=== PATIENT | female | born 1955 | race American Indian/Alaskan Native ===

== ENCOUNTER 2016-05-27 18:37 | Emergency (ER) | payer OTHER ==
[2016-05-27 18:37] VITALS: BMI 35.2
[2016-05-27 19:10] VITALS: BP 146/89; PULSE 78; RESP 16; TEMP 99.7; O2SAT 97
--- NOTE | 2016-05-27 19:46 | ED PDOC ---
Arrival/HPI - General Chief Complaint: Lower Extremity Problem/Injury Time Seen by Provider: 05/27/16 19:19 Historian: Patient - History of Present Illness Narrative History of Present Illness (Text): 05/27/16 21:36 Patient w/ PMH of HTN, reports 2 week h/o atraumatic swelling with no pain to the LLE associated with an itchy rash to the L lower horvath/ankle x 1.5 weeks. Otherwise: (-) trauma, (-) chest pain, (-) dyspnea, (-) hemoptysis, (-) prior thromboembolic disease, (-) prolonged immobility or travel, (-) CHF, (-) known malignancy, (-) fever, (-) chills. Of note, patient states that she saw her pmd regarding her symptoms 2 weeks ago and was sent for an outpatient US to r/o DVT , states that her US was (-) for DVT. Past Medical History - Provider Review Nursing Documentation Reviewed: Yes - Infectious Disease Hx of Infectious Diseases: None - Reproductive Menopause: Yes - Cardiac Hx Cardiac Disorders: Yes Hx Hypertension: Yes - Pulmonary Hx Respiratory Disorders: No - Neurological Hx Neurological Disorder: No - HEENT Hx HEENT Disorder: No - Renal Hx Renal Disorder: No - Endocrine/Metabolic Hx Endocrine Disorders: No - Hematological/Oncological Hx Blood Disorders: No - Integumentary Hx Dermatological Disorder: No - Musculoskeletal/Rheumatological Hx Musculoskeletal Disorders: Yes Hx Arthritis: Yes - Gastrointestinal Hx Gastrointestinal Disorders: No - Genitourinary/Gynecological Hx Genitourinary Disorders: No - Psychiatric Hx Psychophysiologic Disorder: No Hx Substance Use: No (former cocaine use) - Surgical History Hx Cholecystectomy: Yes Hx Hysterectomy: Yes Hx Orthopedic Surgery: Yes (BACK SURGERY) - Anesthesia Hx Anesthesia: Yes Hx Anesthesia Reactions: No - Suicidal Assessment Feels Threatened In Home Enviroment: No Family/Social History - Physician Review Nursing Documentation Reviewed: Yes Family/Social History: No Known Family HX Smoking Status: Former Smoker Hx Alcohol Use: No (former) Hx Substance Use: No (former cocaine use) Allergies/Home Meds Allergies/Adverse Reactions: Allergies seasonal Allergy (Uncoded 05/27/16 19:11) CONGESTION Home Medications: Home Meds Medication Instructions Recorded Confirmed Nifedipine [Nifedipine ER] 30 mg PO DAILY 03/04/15 05/27/16 Aspirin [Ecotrin] 81 mg PO DAILY 04/05/15 05/27/16 Losartan Potassium 100 mg PO BID 04/05/15 05/27/16 Omeprazole 40 mg PO DAILY 04/05/15 05/27/16 Simvastatin 20 mg PO DAILY 04/05/15 05/27/16 Review of Systems - Review of Systems Constitutional: Normal. absent: Fatigue, Weight Change, Fevers Respiratory: Normal. absent: SOB, Cough, Sputum Cardiovascular: Normal. absent: Chest Pain, Palpitations, Edema Musculoskeletal: Normal. absent: Arthralgias, Back Pain, Neck Pain Skin: Normal, Rash (pruritic rash to L horvath/ankle x1.5 wks). absent: Skin Lesions Physical Exam - Physical Exam Narrative Physical Exam (Text): 05/27/16 21:34 GENERAL APPEARANCE: Patient is awake, alert, oriented x 3, in no acute distress. SKIN: Warm, dry; (-) cyanosis; (-) rash. HEAD: (-) scalp swelling, (-) tenderness. EYES: (-) conjunctival pallor, (-) scleral icterus. ENMT: Pharynx: (-) erythema; airway patent: (-) stridor; mucous membranes moist. NECK: (-) tenderness, (-) stiffness, (-) lymphadenopathy, (-) thyromegaly. CHEST AND RESPIRATORY: (-) rales, (-) rhonchi, (-) wheezes, (-) pleural friction rub; breath sounds equal bilaterally. HEART AND CARDIOVASCULAR: (-) irregularity; (-) murmur, (-) gallop, (-) pericardial rub. ABDOMEN AND GI: Soft; (-) tenderness, (-) guarding, (-) rebound, (-) palpable masses, (-) CVA tenderness. EXTREMITIES: (+) erythematous rash noted to the anterior medial L horvath/ankle, ( +) mild nonpitting edema of the LLE with (-) tenderness and (-) palpable cord. Opposite leg: normal. Distal pulses: 2+. NEURO AND PSYCH: Mental status as above. Cranial nerves grossly intact; strength symmetric. Vital Signs Temp Pulse Resp BP Pulse Ox 05/27/16 19:07 99.7 F H 78 16 146/89 97 Medical Decision Making ED Course and Treatment: 05/27/16 21:31 61 yo F presents with 2 week h/o atraumatic LLE edema associated with an itch rash to the anterior medial L horvath/ankle, consider contact dermatitis. Of note, patient already had an outpatient US 2 weeks ago which was (-) for DVT. Based on history and exam, plan will be for outpatient f/u. Will treat as a contact dermatitis but will Rx keflex. Patient states she fully agrees with and understands discharge instructions. States that she agrees with the plan and disposition. Verbalized and repeated discharge instructions and plan. I have given the patient opportunity to ask any additional questions. Follow up with primary care physician in 1-2 days without fail. Advised to take medication as prescribed. Return to the emergency room at any time for any new or worsening symptoms. - PA / COUNTERINTELLIGENCE/HUMINT SPECIALIST / Resident Statement MD/DO has reviewed & agrees with the documentation as recorded. Disposition/Present on Arrival - Present on Arrival Any Indicators Present on Arrival: No History of DVT/PE: No History of Uncontrolled Diabetes: No Urinary Catheter: No History of Decub. Ulcer: No History Surgical Site Infection Following: None - Disposition Have Diagnosis and Disposition been Completed?: Yes Diagnosis: Leg swelling, Contact dermatitis Disposition: HOME/ ROUTINE Disposition Time: 19:44 Patient Plan: Discharge Condition: GOOD Discharge Instructions (ExitCare): Leg Edema (ED), Contact Dermatitis (ED) Print Language: NEPALI Additional Instructions: Thank you for letting us take care of you today. You were treated for left lower leg swelling, contact dermatitis. The emergency medical care you received today was directed at your acute symptoms. If you were prescribed any medication , please fill it and take as directed. It may take several days for your symptoms to resolve. Return to the Emergency Department if your symptoms worsen , do not improve, or if you have any other problems. Please contact your doctor in 2 days for re-evaluation and follow up. Bring any paperwork you were given at discharge with you along with any medications you are taking to your follow up visit. Our treatment cannot replace ongoing medical care by a primary care provider (PCP) outside of the emergency department. Thank you for allowing the [facility] team to be part of your care today. Prescriptions: Cephalexin [Keflex] 500 mg PO Q6 #28 capsule Hydrocortisone Jessica 0.2% Cr [Westcort] 1 ea TP BID #30 tube Cetirizine HCl [Zyrtec] 10 mg PO DAILY #30 capsule Referrals: Indira Stein MD [Primary Care Provider] - Follow up with primary Forms: WORK NOTE
== END 2016-05-27 20:05 | disposition home or self-care (01) ==
LOC: ED 18:37
DX: M79.89 Other specified soft tissue disorders (principal); L25.9 Unspecified contact dermatitis, unspecified cause

== ENCOUNTER 2016-07-20 10:06 | Emergency (ER) | payer OTHER ==
[2016-07-20 10:19] VITALS: BMI 38.4
[2016-07-20 10:23] VITALS: RESP 18; TEMP 98.8
--- NOTE | 2016-07-20 11:22 | ED PDOC ---
Arrival/HPI - General Chief Complaint: Lower Extremity Problem/Injury Time Seen by Provider: 07/20/16 10:30 Historian: Patient - History of Present Illness Narrative History of Present Illness (Text): 07/20/16 10:30 A 61 year old female, whose past medical history includes hypertension, back surgery (L4-L5), total hysterectomy, and cholecystectomy, present to the emergency department complaining of worsening pain and swelling to the left lower extremities for the past month. Patient notes excruciating pain radiating up the left lower extremities. Patient mentions she has chronic back pain and sciatica. Patient states her PMD told here if she experiences pain to come to the emergency department for evaluation, so she decided to come in. Patient mentions she has a ultrasound in early 05/02 which was negative for DVT. Patient denies any right lower extremity swelling, control use, prolong immobilization, or any other complaints at this time. PMD: Dr. Bae Time/Duration: > month Symptom Onset: Gradual Quality: Other Activities at Onset: Rest Context: Home Past Medical History - Provider Review Nursing Documentation Reviewed: Yes - Infectious Disease Hx of Infectious Diseases: None - Reproductive Menopause: Yes - Cardiac Hx Cardiac Disorders: Yes Hx Hypertension: Yes - Pulmonary Hx Respiratory Disorders: No - Neurological Hx Neurological Disorder: No - HEENT Hx HEENT Disorder: No - Renal Hx Renal Disorder: No - Endocrine/Metabolic Hx Endocrine Disorders: No - Hematological/Oncological Hx Blood Disorders: No - Integumentary Hx Dermatological Disorder: No - Musculoskeletal/Rheumatological Hx Musculoskeletal Disorders: Yes Hx Arthritis: Yes - Gastrointestinal Hx Gastrointestinal Disorders: No - Genitourinary/Gynecological Hx Genitourinary Disorders: No - Psychiatric Hx Psychophysiologic Disorder: No Hx Substance Use: No (former cocaine use) - Surgical History Hx Cholecystectomy: Yes Hx Hysterectomy: Yes Hx Orthopedic Surgery: Yes (BACK SURGERY) - Anesthesia Hx Anesthesia: Yes Hx Anesthesia Reactions: No - Suicidal Assessment Feels Threatened In Home Enviroment: No Family/Social History - Physician Review Nursing Documentation Reviewed: Yes Family/Social History: Unknown Family HX Smoking Status: Former Smoker Hx Alcohol Use: No (former) Hx Substance Use: No (former cocaine use) Allergies/Home Meds Allergies/Adverse Reactions: Allergies seasonal Allergy (Uncoded 07/20/16 10:18) CONGESTION Home Medications: Home Meds Medication Instructions Recorded Confirmed Nifedipine [Nifedipine ER] 30 mg PO DAILY 03/04/15 07/20/16 Aspirin [Ecotrin] 81 mg PO DAILY 04/05/15 07/20/16 Losartan Potassium 100 mg PO BID 04/05/15 07/20/16 Omeprazole 40 mg PO DAILY 04/05/15 07/20/16 Simvastatin 20 mg PO DAILY 04/05/15 07/20/16 Review of Systems - Physician Review All systems were reviewed & negative as marked: Yes - Review of Systems Constitutional: absent: Fevers Respiratory: absent: SOB Cardiovascular: Edema (left lower extremity swelling and pain). absent: Chest Pain Gastrointestinal: absent: Abdominal Pain Physical Exam Vital Signs Reviewed: Yes Vital Signs Temp Pulse Resp BP Pulse Ox 07/20/16 12:21 75 18 135/80 98 07/20/16 10:22 98.8 F 78 18 137/88 96 Temperature: Afebrile Blood Pressure: Normal Pulse: Regular Respiratory Rate: Normal Appearance: Positive for: Well-Appearing, Non-Toxic, Comfortable Pain Distress: None Mental Status: Positive for: Alert and Oriented X 3 - Systems Exam Head: Present: Atraumatic, Normocephalic Pupils: Present: PERRL Extroacular Muscles: Present: EOMI Conjunctiva: Present: Normal Mouth: Present: Moist Mucous Membranes Neck: Present: Normal Range of Motion Respiratory/Chest: Present: Clear to Auscultation, Good Air Exchange. No: Respiratory Distress, Accessory Muscle Use Cardiovascular: Present: Regular Rate and Rhythm, Normal S1, S2. No: Murmurs Abdomen: Present: Normal Bowel Sounds. No: Tenderness, Distention, Peritoneal Signs Back: Present: Paraspinal Tenderness (left lower back pain) Upper Extremity: Present: Normal Inspection. No: Cyanosis, Edema Lower Extremity: Present: NORMAL PULSES, Swelling (left lower extremity swelling ), Neurovascularly Intact, Capillary Refill < 2 s. No: CALF TENDERNESS, Cyanosis, Enrique's Sign, Erythema, Deformity, Temperature Abnormalties Neurological: Present: GCS=15, CN II-XII Intact, Speech Normal Skin: Present: Warm, Dry, Normal Color. No: Rashes Psychiatric: Present: Alert, Oriented x 3, Normal Insight, Normal Concentration Medical Decision Making ED Course and Treatment: 07/20/16 10:30 Impression: A 61 year old female with worsening left lower extremity swelling. Differential Diagnosis include but are not limited to: DVT vs Sciatica/ Radiculopathy Plan: -- Left lower extremity duplex ultrasound -- Motrin -- Reassess and disposition Prior Visits: Notes and results from previous visits were reviewed. The patient last presented to the emergency department on 05/27/16 for evaluation os left lower extremity swelling. Progress Notes: 07/20/16 12:25 Patient's ultrasound is negative for a DVT. Patient pain resolved. Symptoms most likely radiculpathy. She will f/u with Dr. Stein. - RAD Interpretation Radiology Orders: 07/20/16 10:45 DUPLEX LOWER EXTRM VEIN LEFT [US] Stat - Medication Orders Current Medication Orders: Discontinued Medications Ibuprofen (Motrin Tab) 600 mg PO STAT STA Stop: 07/20/16 10:47 Last Admin: 07/20/16 11:03 Dose: 600 mg - Scribe Statement The provider has reviewed the documentation as recorded by the Glenroyibe Isha Hinojosa Provider Scribe Attestation: All medical record entries made by the Scribe were at my direction and personally dictated by me. I have reviewed the chart and agree that the record accurately reflects my personal performance of the history, physical exam, medical decision making, and the department course for this patient. I have also personally directed, reviewed, and agree with the discharge instructions and disposition. Disposition/Present on Arrival - Present on Arrival Any Indicators Present on Arrival: No History of DVT/PE: No History of Uncontrolled Diabetes: No Urinary Catheter: No History of Decub. Ulcer: No History Surgical Site Infection Following: None - Disposition Have Diagnosis and Disposition been Completed?: Yes Diagnosis: Leg swelling, Radicular pain Disposition: HOME/ ROUTINE Disposition Time: 12:26 Patient Plan: Discharge Condition: IMPROVED Discharge Instructions (ExitCare): Lumbar Radiculopathy (ED), Leg Edema (ED) Prescriptions: Ibuprofen [Motrin] 600 mg PO Q6 PRN #30 tab PRN Reason: Pain, Moderate (4-7) Referrals: Indira Stein MD [Primary Care Provider] - Follow up with primary Forms: [email or web address] (Yakut), WORK NOTE
[2016-07-20 12:24] VITALS: BP 135/80; PULSE 75; O2SAT 98
--- NOTE | 2016-07-20 15:16 | US ---
PROCEDURE: Left lower extremity venous US HISTORY: Leg pain and swelling. Evaluate for DVT. PHYSICIAN(S): Jacek Myers MD. TECHNIQUE: Duplex sonography and color-flow Doppler with graded compression were used to evaluate the deep venous system of the left lower extremity. FINDINGS: The visualized deep venous system of the left lower extremity is sonographically normal and compressible. Normal wave forms and augmentation are seen. There is no sonographic evidence for deep venous thrombosis in the visualized segments of the left lower extremity. IMPRESSION: 1. No sonographic evidence for deep venous thrombosis in the visualized segments of the left lower extremity.
== END 2016-07-20 12:24 | disposition home or self-care (01) ==
LOC: ED 10:06
DX: M54.16 Radiculopathy, lumbar region (principal); M79.89 Other specified soft tissue disorders; I10 Essential (primary) hypertension; Z87.891 Personal history of nicotine dependence

== ENCOUNTER 2017-02-25 14:21 | Emergency (ER) | payer OTHER ==
[2017-02-25 14:22] VITALS: BMI 38.4
[2017-02-25 15:15] VITALS: TEMP 98.9; O2SAT 97
--- NOTE | 2017-02-25 16:56 | RAD ---
PROCEDURE: Left Knee Radiographs. HISTORY: Pain. No history of recent/ related trauma provided COMPARISON: None. FINDINGS: BONES: Normal. No fracture. JOINTS: Normal. No osteoarthritis. JOINT EFFUSION: None. OTHER FINDINGS: None. IMPRESSION: No significant or acute findings to account for/ related to the clinical presentation.
--- NOTE | 2017-02-25 17:08 | US ---
HISTORY: knee pain/leg pain . PRIORS: None. FINDINGS: 2-D, color and duplex Doppler analysis of the lower extremity venous circulation using routine protocol from the femoral veins through the popliteal veins. Venous compressibility: Normal. Flow and augmentation patterns: Normal. Visualized veins upper third of calf: Normal. Stallings cyst: None. IMPRESSION: No sonographic or Doppler evidence for DVT in left lower extremity.
--- NOTE | 2017-02-25 18:04 | ED PDOC ---
Arrival/HPI - General Chief Complaint: Lower Extremity Problem/Injury Time Seen by Provider: 02/25/17 15:54 Historian: Patient - History of Present Illness Narrative History of Present Illness (Text): 02/25/17 18:03 61-year-old female presents today with a 3 month history of left knee pain. Patient states she's been having on and off left knee pain 3 months. Patient states the pain radiates up and down the thigh and over the lateral aspect of the knee. Patient denies numbness weakness or tingling in the family. Patient states she occasionally takes Motrin for pain. Patient states she had x-rays a few months ago which were normal. Patient states the pain is not improving. Patient states she has not followed up with orthopedist. Patient denies chest pain or shortness of breath. Quality: Aching Past Medical History - Provider Review Nursing Documentation Reviewed: Yes - Travel History Have you recently traveled outside [place] w/in the past 3 mons?: No - Infectious Disease Hx of Infectious Diseases: None - Reproductive Menopause: Yes - Cardiac Hx Cardiac Disorders: Yes Hx Hypertension: Yes - Pulmonary Hx Respiratory Disorders: No - Neurological Hx Neurological Disorder: No - HEENT Hx HEENT Disorder: No - Renal Hx Renal Disorder: No - Endocrine/Metabolic Hx Endocrine Disorders: No - Hematological/Oncological Hx Blood Disorders: No - Integumentary Hx Dermatological Disorder: No - Musculoskeletal/Rheumatological Hx Musculoskeletal Disorders: Yes Hx Arthritis: Yes - Gastrointestinal Hx Gastrointestinal Disorders: No - Genitourinary/Gynecological Hx Genitourinary Disorders: No - Psychiatric Hx Psychophysiologic Disorder: No Hx Substance Use: No (former cocaine use) - Surgical History Hx Cholecystectomy: Yes Hx Hysterectomy: Yes Hx Orthopedic Surgery: Yes (BACK SURGERY) - Anesthesia Hx Anesthesia: Yes - Suicidal Assessment Feels Threatened In Home Enviroment: No Family/Social History - Physician Review Nursing Documentation Reviewed: Yes Family/Social History: Unknown Family HX Smoking Status: Former Smoker Hx Alcohol Use: No (former) Hx Substance Use: No (former cocaine use) Allergies/Home Meds Allergies/Adverse Reactions: Allergies No Known Allergies Allergy (Verified 02/25/17 15:08) Home Medications: Home Meds Medication Instructions Recorded Confirmed Aspirin [Ecotrin] 81 mg PO DAILY 04/05/15 02/25/17 Losartan Potassium 100 mg PO BID 02/18/16 01/10/18 Omeprazole 40 mg PO DAILY 04/05/15 02/25/17 Simvastatin 20 mg PO DAILY 04/05/15 02/25/17 Review of Systems - Review of Systems Constitutional: absent: Fatigue, Fevers Respiratory: absent: SOB, Cough Cardiovascular: absent: Chest Pain, Palpitations Gastrointestinal: absent: Abdominal Pain, Nausea, Vomiting Genitourinary Female: absent: Dysuria Musculoskeletal: Arthralgias (left knee pain). absent: Back Pain, Neck Pain Skin: absent: Rash, Pruritis Neurological: absent: Headache, Dizziness Psychiatric: absent: Anxiety, Depression, Suicidal Ideation Physical Exam Vital Signs Reviewed: Yes Vital Signs Temp Pulse Resp BP Pulse Ox 02/25/17 18:17 75 18 168/74 H 97 02/25/17 15:13 98.9 F 80 16 172/97 H 97 Temperature: Afebrile Blood Pressure: Hypertensive Pulse: Regular Respiratory Rate: Normal Appearance: Positive for: Well-Appearing, Non-Toxic, Comfortable Pain Distress: None Mental Status: Positive for: Alert and Oriented X 3 - Systems Exam Head: Present: Atraumatic Mouth: Present: Moist Mucous Membranes Neck: Present: Normal Range of Motion Respiratory/Chest: Present: Clear to Auscultation, Good Air Exchange. No: Respiratory Distress, Accessory Muscle Use Cardiovascular: Present: Regular Rate and Rhythm, Normal S1, S2. No: Murmurs Abdomen: Present: Normal Bowel Sounds. No: Tenderness, Distention, Peritoneal Signs, Rebound, Guarding Back: Present: Normal Inspection. No: CVA Tenderness, Midline Tenderness, Paraspinal Tenderness Upper Extremity: Present: Normal ROM Lower Extremity: Present: NORMAL PULSES, Normal ROM, Tenderness (left knee; + ttp over anterior and lateral aspect of the knee. ), Neurovascularly Intact, Capillary Refill < 2 s. No: Edema, Swelling, Erythema, Deformity, Temperature Abnormalties Neurological: Present: GCS=15, Speech Normal Skin: Present: Warm, Dry, Normal Color. No: Rashes Psychiatric: Present: Alert, Oriented x 3 Medical Decision Making ED Course and Treatment: 02/25/17 18:50 Patient nontoxic well-appearing in no distress with stable vital signs X-rays of the knee:no fracture duplex; no dvt toradol IM Patient placed in knee immobilizer. cane given for ambulation I discussed all results with patient advised to followup with the orthopedist for the next 2 days. Return if symptoms worsen persist or new symptoms develop i advised the patient that although the xrays show no fracture; there is still a possibility for ligamentous or tendon injury the patient must see the orthopedist for further evaluation. Patient verbalizes understanding of discharge instructions and need for immediate followup. all aspects of this case were discussed the attending of record. Impression: knee pain Motrin every 6 hours as needed for pain Rest, ice, compression, elevation Use Cane for ambulation Followup with the orthopedist within the next 2 days Followup with primary care physician within the next 2 days Return if symptoms worsen persist or if new symptoms develop - RAD Interpretation Radiology Orders: 02/25/17 15:57 KNEE WITH PATELLA LEFT 3 VIEW [RAD] Stat 02/25/17 16:03 DUPLEX LOWER EXTRM VEIN LEFT [US] Stat - Medication Orders Current Medication Orders: Discontinued Medications Ketorolac Tromethamine (Toradol) 60 mg IM STAT STA Stop: 02/25/17 15:58 Last Admin: 02/25/17 17:52 Dose: 60 mg MAR Pain Assessment Document 02/25/17 17:52 [facility] (Rec: 02/25/17 17:52 [facility] [id number]) Pain Reassessment Is this a pain reassessment? No IM Administration Charges Document 02/25/17 17:52 [facility] (Rec: 02/25/17 17:52 [facility] [id number]) Injection Site MAR Injection Site Left Deltoid Charges for Administration # of IM Administrations 1 Disposition/Present on Arrival - Present on Arrival Any Indicators Present on Arrival: No History of DVT/PE: No History of Uncontrolled Diabetes: No Urinary Catheter: No History of Decub. Ulcer: No History Surgical Site Infection Following: None - Disposition Have Diagnosis and Disposition been Completed?: Yes Diagnosis: Knee pain, Leg pain Disposition: HOME/ ROUTINE Disposition Time: 18:17 Patient Plan: Discharge Condition: GOOD Discharge Instructions (ExitCare): Knee Pain (ED), Leg Pain (ED) Additional Instructions: Motrin every 6 hours as needed for pain tramadol; 1 tablet every 6 hours as needed for moderate to severe pain; may cause drowsiness. Rest, ice, compression, elevation Use cane for ambulation Followup with the orthopedist within the next 2 days Followup with primary care physician within the next 2 days Return if symptoms worsen persist or if new symptoms develop Prescriptions: Ibuprofen [Motrin] 600 mg PO Q6H PRN #20 tab PRN Reason: pain/fever reduction traMADol [Ultram] 50 mg PO Q6H PRN #10 tab PRN Reason: moderate to severe pain Referrals: Indira Stein MD [Primary Care Provider] - Follow up with primary Maureen Aguilar MD [Staff Provider] - Follow up with primary Forms: Zelgor (Arabic)
[2017-02-25 18:18] VITALS: BP 168/74; PULSE 75; RESP 18
== END 2017-02-25 18:39 | disposition home or self-care (01) ==
LOC: ED 14:21
DX: M25.562 Pain in left knee (principal); M79.605 Pain in left leg; I10 Essential (primary) hypertension; Z87.891 Personal history of nicotine dependence
CPT/HCPCS: 29530; 73562; 93971; 96372; 99284; J1885

== ENCOUNTER 2017-03-09 10:23 | Emergency (ER) | payer OTHER ==
[2017-03-09 10:25] VITALS: BMI 38.4
== END 2017-03-09 10:40 | disposition left against medical advice (07) ==
LOC: ED 10:23
DX: Z02.89 Encounter for other administrative examinations (principal); M25.562 Pain in left knee

== ENCOUNTER 2017-03-23 21:22 | Emergency (ER) | payer OTHER ==
[2017-03-23 21:22] VITALS: BMI 38.4
[2017-03-23 21:34] VITALS: RESP 18
--- NOTE | 2017-03-23 21:50 | ED PDOC ---
Arrival/HPI - General Chief Complaint: High Blood Pressure Time Seen by Provider: 03/23/17 21:27 Historian: Patient - History of Present Illness Narrative History of Present Illness (Text): 03/23/17 21:50 A 61 year old female was brought in by EMS to the emergency department for evaluation of high blood pressure. Patient saw PMD today, reports blood pressure of 190/120 in office. PMD was supposed to call a different strength of Losartan and water pill, which didn't happen. Patient took blood pressure at home to be 220/120 tonight. Patient called her friend and reports elevated blood pressure after using her friends blood pressure monitor. Patient denies any other complaints at this time. PMD: Dr. Stein Symptom Onset: Sudden Symptom Course: Unchanged Activities at Onset: Rest Context: Home Past Medical History - Provider Review Nursing Documentation Reviewed: Yes - Infectious Disease Hx of Infectious Diseases: None - Cardiac Hx Cardiac Disorders: Yes Hx Hypertension: Yes - Pulmonary Hx Respiratory Disorders: No - Neurological Hx Neurological Disorder: No - HEENT Hx HEENT Disorder: No - Renal Hx Renal Disorder: No - Endocrine/Metabolic Hx Endocrine Disorders: No - Hematological/Oncological Hx Blood Disorders: No - Integumentary Hx Dermatological Disorder: No - Musculoskeletal/Rheumatological Hx Musculoskeletal Disorders: Yes Hx Arthritis: Yes - Gastrointestinal Hx Gastrointestinal Disorders: No - Genitourinary/Gynecological Hx Genitourinary Disorders: No - Psychiatric Hx Psychophysiologic Disorder: No Hx Substance Use: No (former cocaine use) - Surgical History Hx Cholecystectomy: Yes Hx Hysterectomy: Yes Hx Orthopedic Surgery: Yes (BACK SURGERY) - Anesthesia Hx Anesthesia: Yes - Suicidal Assessment Feels Threatened In Home Enviroment: No Family/Social History - Physician Review Nursing Documentation Reviewed: Yes Family/Social History: No Known Family HX Smoking Status: Former Smoker Hx Alcohol Use: No (former) Hx Substance Use: No (former cocaine use) Allergies/Home Meds Allergies/Adverse Reactions: Allergies No Known Allergies Allergy (Verified 02/25/17 15:08) Home Medications: Home Meds Medication Instructions Recorded Confirmed Aspirin [Ecotrin] 81 mg PO DAILY 04/05/15 03/23/17 Losartan Potassium 100 mg PO BID 04/05/15 03/23/17 Omeprazole 40 mg PO DAILY 04/05/15 03/23/17 Simvastatin 20 mg PO DAILY 04/05/15 03/23/17 Review of Systems - Physician Review All systems were reviewed & negative as marked: Yes - Review of Systems Respiratory: absent: SOB Neurological: absent: Headache Physical Exam Vital Signs Reviewed: Yes Vital Signs Pulse Resp BP BP Pulse Ox 03/24/17 02:24 75 18 152/100 H 100 03/24/17 01:40 77 166/99 H 03/24/17 00:52 68 18 158/91 H 100 03/24/17 00:01 70 18 164/97 H 100 03/23/17 23:33 60 174/101 H 03/23/17 23:14 60 18 174/100 H 98 03/23/17 22:01 78 198/102 H 03/23/17 21:45 198/102 H 03/23/17 21:25 76 18 198/102 H 97 Temperature: Afebrile Blood Pressure: Hypertensive Pulse: Regular Respiratory Rate: Normal Appearance: Positive for: Well-Appearing, Non-Toxic, Comfortable Pain Distress: None Mental Status: Positive for: Alert and Oriented X 3 - Systems Exam Head: Present: Atraumatic, Normocephalic Pupils: Present: PERRL Extroacular Muscles: Present: EOMI Conjunctiva: Present: Normal Mouth: Present: Moist Mucous Membranes Neck: Present: Normal Range of Motion Respiratory/Chest: Present: Clear to Auscultation, Good Air Exchange. No: Respiratory Distress, Accessory Muscle Use Cardiovascular: Present: Regular Rate and Rhythm, Normal S1, S2. No: Murmurs Abdomen: Present: Normal Bowel Sounds. No: Tenderness, Distention, Peritoneal Signs Back: Present: Normal Inspection Upper Extremity: Present: Normal Inspection. No: Cyanosis, Edema Lower Extremity: Present: Normal Inspection. No: Edema Neurological: Present: GCS=15, CN II-XII Intact, Speech Normal Skin: Present: Warm, Dry, Normal Color. No: Rashes Psychiatric: Present: Alert, Oriented x 3, Normal Insight, Normal Concentration Medical Decision Making ED Course and Treatment: 03/23/17 21:47 Impression: A 61 year old female with high blood pressure. Plan: -- EKG -- Chest xray -- labs -- Catapres -- Reassess and disposition Progress Notes: 03/23/17 21:54 EKG: Ordered, reviewed, and independently interpreted the EKG. Rate : 66 BPM Rhythm : NSR Interpretation : LVH, nonspecific ST/T changes 03/23/17 23:16 Chest xray: No active disease, as read by me. - Lab Interpretations Lab Results: 03/23/17 21:45 03/23/17 21:45 Lab Results 03/23/17 21:45: Sodium 142, Potassium 3.3 L, Chloride 105, Carbon Dioxide 26, Anion Gap 15, BUN 11, Creatinine 0.7, Est GFR ( Amer) > 60, Est GFR (Non- Af Amer) > 60, Random Glucose 110, Calcium 9.9, Total Bilirubin 0.6, AST 33, ALT 38, Alkaline Phosphatase 101, Lactate Dehydrogenase 563, Total Creatine Kinase 177, Troponin I < 0.01, Total Protein 7.6, Albumin 4.3, Globulin 3.4, Albumin/Globulin Ratio 1.3 03/23/17 21:45: PT 10.9, INR 0.96 03/23/17 21:45: WBC 8.2, RBC 4.50, Hgb 13.6, Hct 40.9, MCV 90.9, MCH 30.2, MCHC 33.3, RDW 15.2 H, Plt Count 265, MPV 9.0, Gran % 49.5 L, Lymph % (Auto) 38.4 H, Collier % (Auto) 7.7 H, Eos % (Auto) 4.0, Baso % (Auto) 0.4, Gran # 4.08, Lymph # ( Auto) 3.2, Collier # (Auto) 0.6, Eos # (Auto) 0.3, Baso # (Auto) 0.03 I have reviewed the lab results: Yes - RAD Interpretation Radiology Orders: 03/23/17 21:42 CHEST PORTABLE [RAD] Stat - EKG Interpretation Interpreted by ED Physician: Yes Type: 12 lead EKG - Medication Orders Current Medication Orders: Discontinued Medications Acetaminophen (Tylenol 325mg Tab) 975 mg PO STAT STA Stop: 03/24/17 02:08 Last Admin: 03/24/17 02:16 Dose: 975 mg MAR Pain/Vitals Document 03/24/17 02:16 AD (Rec: 03/24/17 02:16 AD [id number]) Pain Reassessment Is This A Pain ReAssessment? No Presence of Pain Presence of Pain Yes Pain Scale Used Pain Scale Used Numeric Location Pain Location Body Registry Np Description Intermittent Intensity 5 Scale Used Numeric Pain Behavior Facial Grimacing Clonidine HCl (Catapres) 0.2 mg PO STAT STA Stop: 03/23/17 21:50 Last Admin: 03/23/17 22:01 Dose: 0.2 mg MAR Pulse and Blood Pressure Document 03/23/17 22:01 AD (Rec: 03/23/17 22:01 AD [id number]) Pulse Pulse Rate (60-90) 78 Blood Pressure Blood Pressure (100/60-150/90) 198/102 Hydralazine HCl (Apresoline) 10 mg IVP ONCE ONE Stop: 03/23/17 23:22 Last Admin: 03/23/17 23:33 Dose: 10 mg IVP Administration Document 03/23/17 23:33 AD (Rec: 03/23/17 23:34 AD [id number]) Charges for Administration # of IVP Administrations 1 MAR Pulse and Blood Pressure Document 03/23/17 23:33 AD (Rec: 03/23/17 23:34 AD [id number]) Pulse Pulse Rate (60-90) 60 Blood Pressure Blood Pressure (100/60-150/90) 174/101 Hydralazine HCl (Apresoline) 10 mg IVP ONCE ONE Stop: 03/24/17 01:24 Last Admin: 03/24/17 01:40 Dose: 10 mg IVP Administration Document 03/24/17 01:40 AD (Rec: 03/24/17 02:17 AD [id number]) Charges for Administration # of IVP Administrations 1 MAR Pulse and Blood Pressure Document 03/24/17 01:40 AD (Rec: 03/24/17 02:17 AD [id number]) Pulse Pulse Rate (60-90) 77 Blood Pressure Blood Pressure (100/60-150/90) 166/99 - PA / [employer] / Resident Statement MD/DO has reviewed & agrees with the documentation as recorded. - Scribe Statement The provider has reviewed the documentation as recorded by the Abiodun Booker Provider Scribe Attestation: All medical record entries made by the Scribe were at my direction and personally dictated by me. I have reviewed the chart and agree that the record accurately reflects my personal performance of the history, physical exam, medical decision making, and the department course for this patient. I have also personally directed, reviewed, and agree with the discharge instructions and disposition. Disposition/Present on Arrival - Present on Arrival Any Indicators Present on Arrival: No History of DVT/PE: No History of Uncontrolled Diabetes: No Urinary Catheter: No History of Decub. Ulcer: No History Surgical Site Infection Following: None - Disposition Have Diagnosis and Disposition been Completed?: Yes Diagnosis: Uncontrolled hypertension Disposition: HOME/ ROUTINE Disposition Time: 02:26 Patient Plan: Discharge Patient Problems: Current Active Problems Problem Status Onset Uncontrolled hypertension Acute Condition: GOOD Discharge Instructions (ExitCare): Chronic Hypertension (ED), Hypertensive Crisis (ED) Additional Instructions: Mrs Ruano - Tabby that this is happening for you right now. Please get the meds from your doctor.... (call her first thing this morning). Return to us if you have any problems. It was a pleasure to care for you tonightVincent Kennedy- Dr. Arie Tinoco PS..... If and only if you cant get in touch with your doctor tomorrow..... fill the clonidine and use it until you can talk with your doctor. Prescriptions: Clonidine HCl [Catapres] 0.1 mg PO TID #90 tablet Referrals: Indira Stein MD [Primary Care Provider] - Follow up with primary Forms: [employer] ([place])
[2017-03-23 22:01] LABS: BASO # 0.03 K/mm3 (0.0-2.0); BASO % 0.4 % (0.0-3.0); EOS # 0.3 (0.0-0.7); GRAN # 4.08 (1.4-6.5); GRAN % 49.5 % (50.0-68.0); HEMOGLOBIN 13.6 g/dL (12.0-16.0); LYMPH # 3.2 (1.2-3.4); LYMPH % 38.4 % (22.0-35.0); MEAN CELL VOLUME 90.9 fl (80.0-105.0); MEAN CORPUSCULAR HEMOGLOBIN 30.2 pg (25.0-35.0); MEAN CORPUSCULAR HGB CONC 33.3 g/dl (31.0-37.0); MONO # 0.6 (0.1-0.6); MONO % 7.7 % (1.0-6.0); RBC 4.5 10^6/uL (3.5-6.1); RED CELL DISTRIBUTION WIDTH 15.2 % (11.5-14.5); WHITE BLOOD COUNT 8.2 10^3/ul (4.5-11.0)
[2017-03-23 22:13] LABS: PROTHROMBIN TIME 10.9 SECONDS (9.4-12.5)
[2017-03-23 22:14] LABS: INR 0.96 (0.93-1.08)
[2017-03-23 22:17] LABS: ALB/GLOB RATIO 1.3 (1.1-1.8); ALBUMIN 4.3 g/dL (3.0-4.8); ALT/SGPT 38 U/L (7-56); AST/SGOT 33 U/L (14-36); BLOOD UREA NITROGEN 11 mg/dL (7-21); CALCIUM 9.9 mg/dL (8.4-10.5); GFR AFRICAN-AMERICAN > 60; GFR NON-AFRICAN AMERICAN > 60
[2017-03-23 22:27] LABS: TROPONIN I < 0.01 ng/mL
[2017-03-24 00:02] VITALS: O2SAT 100
[2017-03-24 02:24] VITALS: BP 152/100; PULSE 75
--- NOTE | 2017-03-24 08:36 | RAD ---
HISTORY: hypertensive urgency COMPARISON: 07/24/2015 FINDINGS: LUNGS: No active pulmonary disease. PLEURA: No significant pleural effusion identified, no pneumothorax apparent. CARDIOVASCULAR: Moderate cardiomegaly and moderate aortic tortuosity OSSEOUS STRUCTURES: No significant abnormalities. VISUALIZED UPPER ABDOMEN: Normal. OTHER FINDINGS: None. IMPRESSION: No active disease.
--- NOTE | 2017-03-24 12:30 | CARD ---
APPROVED REPORT EKG Measurement Heart [id number] <Conclusion> Normal sinus rhythm Voltage criteria for left ventricular hypertrophy Nonspecific ST and T wave abnormality Abnormal ECG
== END 2017-03-24 02:40 | disposition home or self-care (01) ==
LOC: ED 21:22
DX: I10 Essential (primary) hypertension (principal); Z87.891 Personal history of nicotine dependence
CPT/HCPCS: 71045; 80053; 82550; 83615; 84484; 85025; 85610; 93005; 96374; 96376; 99284; J0360